=== PATIENT | female | born 1955 | race Asian ===

== ENCOUNTER 2020-06-27 14:02 | Emergency (ER) | payer OTHER ==
[2020-06-27] MEDS ORDERED: METOPROLOL TARTRATE 50 MG TABLET (FP) PO ONE (14:23)
[2020-06-27 14:44] LABS: BASO % 0.7 % (0-2.0); EOS % 0.5 % (0-4.5); HEMATOCRIT 36.7 % (32.4-45.2); HEMOGLOBIN 11.7 GM/dl (10.7-15.3); LYMPH % 17.7 % (8-40); MCH 27.4 pg (25.7-33.7); MEAN CELL VOLUME 85.8 fl (80-96); MEAN PLT VOLUME 9.7 fl (7.5-11.1); MONO % 3.8 % (3.8-10.2); NEUT % 77.3 % (42.8-82.8); PLATELET COUNT 280 K/MM3 (134-434); RBC 4.28 M/mm3 (3.60-5.2); RDW 14.6 % (11.6-15.6); WHITE BLOOD COUNT 9.1 K/mm3 (4.0-10.8)
[2020-06-27 14:54] LABS: ALBUMIN 3.9 g/dl (3.4-5.0); BILIRUBIN,TOTAL 1.1 mg/dl (0.2-1); CALCIUM 9.3 mg/dl (8.5-10); CREATININE 0.9 mg/dl (0.55-1.3); POTASSIUM 3.3 mmol/L (3.5-5.1); TOT PROT 7.4 g/dl (6.4-8.2)
[2020-06-27] MEDS ORDERED: POTASSIUM CHLORIDE TABS 20 MEQ TABLET.ER (FP) PO ONE ×2 (14:56→15:36)
[2020-06-27] MEDS ORDERED: HYDROCHLOROTHIAZIDE 25 MG TABLET (FP) PO ONE (15:23)
[2020-06-27] MEDS ORDERED: METOPROLOL TARTRATE 50 MG TABLET (FP) ONE (15:35)
[2020-06-27] MEDS ORDERED: HYDROCHLOROTHIAZIDE 25 MG TABLET (FP) ONE (15:36)
[2020-06-27 15:52] VITALS: BMI 23.3
[2020-06-27 16:19] VITALS: TEMP 98.9
[2020-06-27 16:32] VITALS: BP 132/88; PULSE 92
== END 2020-06-27 16:43 | disposition home or self-care (01) ==
LOC: FER 14:02
DX: I48.20 Chronic atrial fibrillation, unspecified (principal)
CPT/HCPCS: 36415; 80053; 82550; 84443; 84484; 85025; 93005; 99285-25